=== PATIENT | female | born 1975 | race African-American/Black ===

== ENCOUNTER 2017-09-22 12:14 | Emergency (ER) | payer OTHER ==
[~2017-09-22] VITALS: Ht 165.1 cm; Wt 95.7 kg
[2017-09-22 12:15] VITALS: BP 152/99
[2017-09-22] MEDS ORDERED: IV NORMAL SALINE 1,000ML 1,000 ML IV SCH (12:25)
--- NOTE | 2017-09-22 12:31 | PHYS DOC ---
Past History Past Medical History: No Pertinent History Past Surgical History: Cholecystectomy Additional Past Surgical Histo: hernia repair Smoking: Non-smoker Alcohol Use: None (states she used to drink, but has not in a long time) Adult General Chief Complaint Chief Complaint: BACK PAIN OR INJURY HPI HPI Patient is a 41-year-old female presents to the emergency department for evaluation. She states that for the past 4-6 weeks, she has had some intermittent right-sided lower back pain, along with some right-sided abdominal discomfort. She reports polyuria and polydipsia. She states her , was recently diagnosed with diabetes himself, thought she might have diabetes, but [place] and it was [place] significantly elevated, reports it was borderline. She states that she feels generally weak and fatigued , and she feels as if she has to eat and drink a lot to avoid getting tired. She has not had any fevers or chills, nausea, vomiting. She reports that her stools have been somewhat yellowish, but has not had any black or bloody stools. She denies any chest pain or shortness of breath, headache, numbness, or focal weakness. Eating does seem to worsen her abdominal discomfort. There are no alleviating factors to her symptoms. Review of Systems Review of Systems Constitutional: Denies fever or chills [] Eyes: Denies change in visual acuity, redness, or eye pain [] HENT: Denies nasal congestion or sore throat [] Respiratory: Denies cough or shortness of breath [] Cardiovascular: The patient denies any shortness of breath, chest pain, palpitations, or orthopnea [] GI: As per history of present illness[] : Denies dysuria or hematuria. Denies vaginal bleeding or discharge. Denies . States LMP /18 . Denies pelvic pain, or concern for STDs.[] Musculoskeletal: Denies arthralgias or joint pain [] Integument: Denies rash or skin lesions [] Neurologic: Denies headache, focal weakness or sensory changes [] Endocrine: Reports polyuria and polydipsia [] All other systems were reviewed and found to be within normal limits, except as documented in this note. Allergies Allergies Allergies Coded Allergies Type Severity Reaction Last Updated Verified Penicillins Allergy Intermediate 09/22/17 Yes amoxicillin Allergy Intermediate 09/22/17 Yes aspirin Allergy Intermediate 09/22/17 Yes Physical Exam Physical Exam PHYSICAL EXAM: CONSTITUTIONAL: Well developed, well nourished HEAD: normocephalic, atraumatic EENT: PERRL, EOMI. Conjunctivae normal color, sclerae non-icteric; moist mucous membranes. NECK: Supple, non-tender; no meningismus. LUNGS: Lungs CTA, breathing even and unlabored. Normal air movement. HEART: Regular rate and rhythm, no murmur CHEST: No deformity; non-tender ABDOMEN: The abdomen is soft, is mild diffuse right upper abdominal tenderness to palpation, and some epigastric tenderness to palpation, without rebound or guarding. Lower abdomen is relatively non-tender, no masses or bruits. EXTREM: Normal ROM; no deformity, no calf tenderness. Normal pulses palpable in all extremities. There is no pedal edema. SKIN: No rash; no diaphoresis NEURO: Alert; normal speech and cognition; CN's grossly intact; strength grossly intact without focal deficit. BACK: No CVA TTP. There is no midline vertebral tenderness to palpation. EKG EKG Normal sinus rhythm with a normal rate, normal axis, normal intervals, there are no acute ischemic ST/T changes. Radiology/Procedures Radiology/Procedures [] Course & Med Decision Making Course & Med Decision Making Pertinent Lab studies reviewed. (See chart for details) [1:20 PM: The patient's condition remains stable. Labs have been reviewed and are unremarkable. I discussed the importance of close follow-up with her primary care provider for further outpatient evaluation, possibly including thyroid testing (unavailable in the emergency department). We discussed use of [id number] acetaminophen in conservative measures for her back pain. I'll start the patient on an H2 hiral for possible peptic ulcer disease and I encouraged her to seek further follow-up with her primary care provider and possible GI referral. We discussed return precautions.] Dragon Disclaimer Dragon Disclaimer This electronic medical record was generated, in whole or in part, using a voice recognition dictation system. Departure Departure: Impression: Primary Impression: Back pain Additional Impression: Abdominal pain Disposition: HOME, SELF-CARE Condition: STABLE Patient Instructions: Abdominal Pain, Back Pain, Adult Scripts Famotidine (PEPCID) 20 Mg Tablet 20 MG PO BID, #60 TAB Prov: PRASHANT METZGER MD 09/22/17 Problem Qualifiers PRASHANT METZGER MD Sep 22, 2017 12:31
[2017-09-22 13:02] LABS: BASO % 0 % (0-3); EOS # 0.1 x10^3/uL (0.0-0.7); EOS % 1 % (0-3); HEMATOCRIT 38.6 % (36.0-47.0); HEMOGLOBIN 12.6 g/dL (12.0-15.5); LYMPH # 2.2 x10^3/uL (1.0-4.8); LYMPH % 22 % (24-48); MEAN CORPUSCULAR HEMOGLOBIN 27 pg (25-35); MEAN CORPUSCULAR HGB CONC 33 g/dL (31-37); MEAN CORPUSCULAR VOLUME 84 fL (79-100); MONO # 0.8 x10^3/uL (0.0-1.1); MONO % 8 % (0-9); NEUT # 6.9 x10^3uL (1.8-7.7); NEUT % 69 % (31-73); PLATELET COUNT 444 x10^3/uL (140-400); RED BLOOD COUNT 4.61 x10^6/uL (3.50-5.40); RED CELL DISTRIBUTION WIDTH 14.4 % (11.5-14.5)
[2017-09-22 13:07] LABS: BACTERIA,URINE MOD /HPF (0-FEW); BILIRUBIN,URINE NEG (NEG); CLARITY,URINE CLEAR; COLOR,URINE STRAW; GLUCOSE,URINE NEG (NEG); NITRITE,URINE NEG (NEG); RBC,URINE 0 /HPF (0-2); SQUAMOUS EPITHELIAL CELL,UR OCC /LPF; U PREG PATIENT NEGATIVE (NEG); UROBILINOGEN,URINE 0.2 mg/dL (0.2 mg/dL); WBC,URINE RARE /HPF (0-4)
[2017-09-22 13:15] LABS: ALBUMIN 3.8 g/dL (3.4-5.0); ALBUMIN/GLOBULIN RATIO 0.8 (1.0-1.7); CALCIUM 9.3 mg/dL (8.5-10.1); CREATININE 0.9 mg/dL (0.6-1.0); GFR 69.3; POTASSIUM 3.9 mmol/L (3.5-5.1); TOTAL BILIRUBIN 0.2 mg/dL (0.2-1.0); TOTAL PROTEIN 8.6 g/dL (6.4-8.2)
[2017-09-22] MEDS ORDERED: FAMO-63 PO (13:27)
--- NOTE | 2017-09-23 07:45 | EKG ---
[address] [address] Test Date: 2017-09-22 Test Time: 12:37:40 Pat Name: DARRICK SANTOS Department: Room: Gender: F [employer]: : [id number] Requested By: PRASHANT METZGER Order Number: [id number] Reading MD: Measurements Intervals [place] Rate: 85 P: 51 [place]: 156 QRS: 33 QRSD: 72 T: 27 QT: 344 QTc: 410 Interpretive Statements SINUS RHYTHM NORMAL ECG RI6.01 Unconfirmed report No previous ECG available for comparison
== END 2017-09-22 13:50 | disposition home or self-care (01) ==
LOC: ER 12:14
DX: M54.5 Low back pain (principal); R10.11 Right upper quadrant pain; R10.13 Epigastric pain; R35.8 Other polyuria; R63.1 Polydipsia; Z90.49 Acquired absence of other specified parts of digestive tract; Z88.0 Allergy status to penicillin; Z88.1 Allergy status to other antibiotic agents; Z88.6 Allergy status to analgesic agent
CPT/HCPCS: 36415; 80053; 81001; 81025; 83690; 84484; 85025; 87086; 93005; 99285-25; J7030